=== PATIENT | female | born 2000 | race Native Hawaiian/Other Pacific Islander ===

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

== ENCOUNTER 2021-02-05 15:31 | Emergency (ER) | payer OTHER ==
[2021-02-05 15:40] VITALS: BP 140/80
[2021-02-05] MEDS ORDERED: IBUPROFEN 800 MG TAB PO STA (17:53)
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
[2021-02-05] MEDS ORDERED: ACETAMINOPHEN 500 MG TAB PO STA (18:26)
[2021-02-05 18:35] LABS: Bilirubin,Urine NEG (Negative); Blood,Urine SM (Negative); Color,Urine Straw (Yellow); Protein,Urine <15 mg/dL mg/dL (Negative); Urobilinogen,Urine < 2.0 mg/dL (<2.0)
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
[2021-02-05 19:23] LABS: HCG Qualitative,Urine Negative (Negative)
== END 2021-02-05 20:06 | disposition home or self-care (01) ==
LOC: ED 15:31
DX: N39.0 Urinary tract infection, site not specified (principal); M54.2 Cervicalgia; M54.50 Low back pain, unspecified; V49.49XA Driver injured in collision with other motor vehicles in traffic accident, initial encounter; Y93.89 Activity, other specified; Y92.89 Other specified places as the place of occurrence of the external cause; Y99.8 Other external cause status
CPT/HCPCS: 72040; 72100; 81001; 81025; 87086; 99284

== ENCOUNTER 2021-09-17 00:52 | Emergency (ER) | payer OTHER ==
[2021-09-17 04:16] VITALS: BP 121/80
== END 2021-09-18 08:57 | disposition left against medical advice (07) ==
LOC: ED 00:52
DX: Z04.1 Encounter for examination and observation following transport accident (principal); Z53.21 Procedure and treatment not carried out due to patient leaving prior to being seen by health care provider; V89.2XXA Person injured in unspecified motor-vehicle accident, traffic, initial encounter; Y93.89 Activity, other specified; Y92.89 Other specified places as the place of occurrence of the external cause; Y99.8 Other external cause status